=== PATIENT | female | born 1945 | race Caucasian/White ===

== ENCOUNTER 2017-10-13 06:39 | Day surgery (SDC) | payer OTHER ==
[~2017-10-13] VITALS: Ht 165.1 cm; Wt 89.4 kg
[~2017-10-13 06:39] MED LIST: ADVAIR 500/501 DISK IH; BENICAR HCT 201 EACH PO; BREO ELLIPTA I1 EACH IH; CALCIUM 600 +1 EA17 PO; DEXILANT60 MG PO; DIPROSONE 0.05%15 GM TP; FLONASE ALLERG9.9 ML BOTH NARES; NOLVADEX20 MG PO; POTASSIUM-9999 MG PO; SINGULAIR10 MG PO; VENLAFAXINE H37.5 M3 PO; VENTOLIN HFA18 GM IH; VITAMIN D32000 UNI1 PO
[2017-10-13 07:07] VITALS: BP 144/65
[2017-10-13 10:40] VITALS: BP 158/72
[2017-10-13 10:48] VITALS: BP 148/65
== END 2017-10-13 11:00 | disposition home or self-care (01) ==
LOC: SDC 06:39
DX: H35.372 Puckering of macula, left eye (principal); H35.81 Retinal edema; I10 Essential (primary) hypertension; R01.1 Cardiac murmur, unspecified; K76.0 Fatty (change of) liver, not elsewhere classified; E78.5 Hyperlipidemia, unspecified; K21.9 Gastro-esophageal reflux disease without esophagitis
CPT/HCPCS: J0690; J0713; J3300